=== PATIENT | female | born 1995 | race Caucasian/White ===

== ENCOUNTER 2017-01-10 10:10 | Day surgery (SDC) | payer OTHER ==
[~2017-01-10 10:10] MED LIST: YAZ 28 TABLET1 EACH PO
[2017-01-10 11:15] LABS: HCT-HEMATOCRIT 38.2 % (34.0-49.0); HGB-HEMOGLOBIN 12.8 gm/dl (12.0-15.5)
== END 2017-01-10 15:25 ==
LOC: SRG 10:10 → SHSB 10:14 → ORW 12:01 → PACU 12:56 → SHSB 13:48
PROVIDERS: Anesthesiology
PROC: 0DTJ4ZZ Resection of Appendix, Percutaneous Endoscopic Approach (ICD-10-PCS; principal; 2017-01-10)
DX: K35.80 Unspecified acute appendicitis (principal); K21.9 Gastro-esophageal reflux disease without esophagitis; Z79.899 Other long term (current) drug therapy; Z98.890 Other specified postprocedural states
CPT/HCPCS: J0690; J2270; J3010; J7030